=== PATIENT | female | born 2000 | race Caucasian/White ===

== ENCOUNTER 2024-10-12 11:01 | Outpatient (CLI) | payer BC, SELFPAY ==
--- NOTE | 2024-10-12 11:15 | CRLHL7_ITS ---
For Patients: As a result of the Century Cures Act, medical imaging exams and procedure reports are released immediately into your electronic medical record. You may view this report before your referring provider. If you have questions, please contact your health care provider. CLINICAL HISTORY: f/u right ovarian cyst COMPARISON: None. TECHNIQUE: 2D kamara-scale ultrasound. In addition, color Doppler and spectral Doppler analysis was performed of the pelvis using a transabdominal and transvaginal approach. Transvaginal imaging performed to better visualize the endometrial stripe and ovaries. FINDINGS: The myometrium has a normal uniform echotexture. The uterus measures 7.4 x 3.4 x 3.6 cm. The endometrial lining appears normal and measures 3.9 mm in thickness. The right ovary measures 7.7 x 5.5 x 6.6 cm in size and the left ovary measures 2.7 x 2.1 x 1.8 cm. The ovaries demonstrate normal arterial and venous blood flow on color Doppler and spectral Doppler analysis. There are no suspicious fluid collections within the cul-de-sac. Simple circumscribed right ovarian cyst measures 7.0 x 4.7 x 6.3 cm. No papillary projection or internal vascularity. IMPRESSION: Simple right ovarian cyst measures 7.0 cm. No torsion or excess pelvic free fluid. By report, this previously measured 4.9 x 3.9 x 3.4 cm. Dictated by Archie Roberts MD @ 10/12/2024 12:00:03 PM (Electronically Signed)
== END 2024-10-12 11:02 | disposition home or self-care (01) ==
LOC: US 11:03
PROVIDERS: Visit Provider Obstetrics & Gynecology
DX: N92.1 Excessive and frequent menstruation with irregular cycle (principal); N83.201 Unspecified ovarian cyst, right side
CPT/HCPCS: 76830; 76856; 93976

== ENCOUNTER 2024-11-06 06:54 | Day surgery (SDC) | payer BC, SELFPAY ==
[2024-11-06] VITALS (13 sets, daily range): BP systolic 95–128; BP diastolic 55–76; PULSE 75–101; RESP 16–18; TEMP 36.6–36.9; O2SAT 94–99; BMI 25.5
[2024-11-06 07:24] LABS: Ur HCG Qualitative* Negative (Negative)
[2024-11-06 07:47] LABS: Hemoglobin* 14.9 gm/dL (12.0-16.0)
[2024-11-06] MEDS: SODIUM CHLORIDE 0.9 % (FLUSH) 10 ML SYRINGE IVF (07:51)
[2024-11-06] MEDS: LACTATED RINGERS 1000 ML 1,000 ML 100 ML IV ×2 (07:51→09:31)
--- NOTE | 2024-11-06 08:09 | W.PM.H&PU ---
History & Physical Update History & Physical Update H&P Reviewed and patient assessed: No changes noted H&P Updates: Ms. Thorne is seen in pre-op prior to planned laparoscopic right ovarian cystectomy. No interval change to her health history or questions today. We again reviewed the risks, benefits and alternatives to the planned procedure. Written consent was re-signed. Post-procedure restrictions and expectations reviewed. Pre-op labs reviewed and are within normal limits. No perioperative antibiotics indicated.
--- NOTE | 2024-11-06 08:10 | W.PM.GYNPROC ---
Procedure Note Date of procedure: 11/06/24 Will [facility] bill your pro fee for this procedure?: Yes Pre-op diagnosis: Right ovarian cyst Procedure: Laparoscopic right ovarian cystectomy Anesthesia: GETA Complications: None Surgeon: Zach Fritz MD Findings: Unremarkable upper abdominal survey and appendix Unremarkable uterus and bilateral fallopian tubes Left ovary with small corpus luteum cyst, approximately 1cm in size Right ovary with decompressed simple ovarian cyst, approximately 4cm in size Procedure Description: Patient was taken to the operating room with IV running. She was positioned in dorsal lithotomy position with her legs fully supported in [place] stirrups. General anesthesia was administered. She was prepped and draped in the usual sterile fashion. A surgical time out was held to confirm patient and procedure. Reese catheter was inserted. Speculum was inserted. Cervix was visualized and appears unremarkable. Cervix was grasped with a tenaculum on the posterior margin, where a uterine sound could be passed to 7 cm without difficulty. The [employer] uterine manipulator was inserted and secured to anterior cervix. Tenaculum removed. A 12 mm infraumbilical incision was made with a scalpel and carried down to the underlying layer of fascia with the hemostat. The fascia was grasped with Candy clamps and elevated, fascial incision made with scalpel. A curved hemostat was utilized to grasp the peritoneum and elevated it, incised with scalpel. A curve was then introduced and utilized to gently stretch fascial incision. The fascia was tagged with 0 vicryl and straights removed. Brannon trocar was introduced to the peritoneal cavity, balloon inflated. Camera inserted and high flow initiated. Pneumoperitoneum was achieved, where careful attention was paid below site of entry - no injury or bleeding noted. Upper abdominal survey was completed, revealing normal anatomy. Patient was put into Trendelenburg, pelvic survey was remarkable for decompression of the former 7cm right simple ovarian cyst. No apparent site of cyst rupture, but the cyst was no longer under tension and was approximately 4cm in size. The decompressed simple ovarian cyst site could still be easily visualized, where decision was made to proceed with right ovarian cystectomy. Three additional port sites were created. The first was in the patient's left lower quadrant, just superomedial to the left ASIS. The second was a hand's breadth superior to and slightly medial to the first. The third was in the patient's right lower quadrant, just superomedial to the right ASIS. All trocars were inserted under direct visualization, where careful attention was paid to avoid the inferior epigastric vessels, superficial skin vasculature and the bowel on entry. Obturator removed, balloon inflated. Attention was turned to the left adnexa. The ovary was stabilized with laparoscopic graspers and Rally Fit spatula was utilized to incise the ovarian stroma overlying the suspected cyst. A plane was apparent between the normal ovarian stroma and underlying cyst, which was developed with gentle blunt dissection. The cyst was stabilized and gently freed from underlying ovarian tissue with gentle traction to peel it away. As traction was applied to cyst wall, it was noted to be friable and sheered easily. The cyst wall was thus dissected free using largely blunt dissection and traction but was removed in several pieces. All sections of cyst wall was removed through laparoscopic ports with graspers as cystectomy ensued. Cyst rupture occurred during dissection, with return of clear. The site of ovarian cystectomy was inspected, made hemostatic with monopolar cautery. Low pressure test was performed, where hemostasis was again assured. Karen was applied across the right ovarian cyst bed. Excellent hemostasis was noted. Laparoscopic portion was deemed complete. The balloons of all port sites were deflated, and all ports were removed after pneumoperitoneum was released. The fascia was closed by tying together the two stay sutures on the infraumbilical fascia, no fascial defect could be appreciated after closure. The skin of each port site was closed in a subcuticular fashion with 3-0 Monocryl. Surgical glue was applied above this. The uterine manipulator was removed. Bleeding was noted on the cervix at the anterior Hulka site and posterior tenaculum sites. Hemostasis was achieved with pressure and silver nitrate. Reese catheter removed. Patient tolerated procedure well and was taken to recovery area in stable condition. EBL 75 mL, UOP 150 mL, IVF 1200 mL. Confirmed specimens sent to pathology including right ovarian cyst wall.
[2024-11-06] MEDS: BUPIVACAINE 0.5% 30 ML INJECTION (09:13)
[2024-11-06] MEDS: KETOROLAC 30 MG/ML inj IVP (10:08)
[2024-11-06] MEDS: SILVER NITRATE APPLICATOR 1 EACH STICK..EA. TOPICAL (10:12)
--- NOTE | 2024-11-06 10:28 | P.ANES_ITS ---
Anesthesia Charges Start Date/Time Anesthesia Start Date: 11/06/24 Anesthesia Start Time: 08:44 Stop Date/Time Anesthesia Stop Date: 11/06/24 Anesthesia Stop Time: 10:30 Coding CPT Codes CPT Codes: ANESTH SURG LOWER ABDOMEN - 42463 ([id number]) P1 - NORMAL HEALTHY PATIENT, QK - DIRECTOR EXPERIMENTAL MEDICINE 2-4 CNCRNT ANES PROC, QX - RN INVASIVE SVNorma W/ MED DIRECTION
--- NOTE | 2024-11-06 10:28 | W.ANESCHARGE ---
Anesthesia Charges Start Date/Time Anesthesia Start Date: 11/06/24 Anesthesia Start Time: 08:44 Stop Date/Time Anesthesia Stop Date: 11/06/24 Anesthesia Stop Time: 10:30 Coding CPT Codes CPT Codes: ANESTH SURG LOWER ABDOMEN - 63556 ([id number]) P1 - NORMAL HEALTHY PATIENT, QK - TRANSPORT NURSE 2-4 CNCRNT ANES PROC, QX - GLOVE PARTS CUTTER SVNorma W/ MED DIRECTION
[2024-11-06] MEDS: fentaNYL 100 MCG/2 ML inj 50 MCG IVP ×2 (10:41→10:55)
--- NOTE | 2024-11-06 11:12 | P.ANES_ITS ---
Anesthesia Charges Start Date/Time Anesthesia Start Date: 11/06/24 Anesthesia Start Time: 08:44 Stop Date/Time Anesthesia Stop Date: 11/06/24 Anesthesia Stop Time: 10:30 Coding CPT Codes CPT Codes: ANESTH SURG LOWER ABDOMEN - 30578 ([id number]) P1 - NORMAL HEALTHY PATIENT, QK - GUEST EXPERIENCE MANAGER 2-4 CNCRNT ANES PROC, QX - PRESCHOOL PARAPROFESSIONAL SVNorma W/ MED DIRECTION
--- NOTE | 2024-11-06 11:12 | W.ANESCHARGE ---
Anesthesia Charges Start Date/Time Anesthesia Start Date: 11/06/24 Anesthesia Start Time: 08:44 Stop Date/Time Anesthesia Stop Date: 11/06/24 Anesthesia Stop Time: 10:30 Coding CPT Codes CPT Codes: ANESTH SURG LOWER ABDOMEN - 23306 ([id number]) P1 - NORMAL HEALTHY PATIENT, QK - PICKER/PULLER 2-4 CNCRNT ANES PROC, QX - COPING MACHINE OPERATOR SVNorma W/ MED DIRECTION
--- NOTE | 2024-11-06 11:21 | SUR.PHASEII ---
upon arrival from PACU pt reports she has to use the bathroom, ambulated with pt to bathroom- denies dizziness. pt voided
== END 2024-11-06 12:00 | disposition home or self-care (01) ==
PROVIDERS: Visit Provider Obstetrics & Gynecology
PROC: (CPT 58662; principal; 2024-11-06 08:30)
DX: N83.291 Other ovarian cyst, right side (principal); N83.12 Corpus luteum cyst of left ovary
CPT/HCPCS: 58662; 00840; 36415; 81025; 85018; 86850; 86900; 86901; A9270; J0665; J1885; J2250; J2371; J2704; J3010; J3490; J7120